=== PATIENT | male | born 1955 | race Caucasian/White ===

== ENCOUNTER 2016-08-28 09:08 | Outpatient (CLI) | payer MEDICARE ==
--- NOTE | 2016-08-28 11:11 | RAD ---
FINGERS RIGHT HAND: Technique: Third finger is evaluated with two views. History: Pain to the third digit. FINDINGS: There are mild degenerative changes at the PIP and DIP joints of the third finger with minimal spurr ing at these joints. No fracture or dislocation. No acute osseous abnormality. There is a rounded metallic foreign body seen in the soft tissues of the thenar eminence which measu res approximately 1.0 cm. IMPRESSION: 1. Degenerative changes at the PIP and DIP joints as described but no acute osseous abnormality. 2. A rounded metallic soft tissue foreign body is noted as described. POS: [facility]
== END 2016-08-28 09:09 | disposition home or self-care (01) ==
LOC: MADRAD 09:08
PROVIDERS: ATTEND Family Medicine
DX: M65.331 Trigger finger, right middle finger (principal); M79.5 Residual foreign body in soft tissue

== ENCOUNTER 2016-10-15 14:23 | Outpatient (CLI) | payer MEDICARE ==
--- NOTE | 2016-10-15 14:50 | RAD ---
LEFT HIP TWO VIEWS: History: Hip pain. FINDINGS: Mild degenerative change noted. There is perhaps minimal spurring from the femoral head. There is no fracture. No other osseous lesion. IMPRESSION: No acute finding. Evidence of very mild degenerative change at the left hip. POS: [facility]
--- NOTE | 2016-10-15 17:49 | RAD ---
FIVE VIEWS LUMBAR SPINE 10/15/16 HISTORY: Low back pain one week ago. No history of trauma. FINDINGS: There are five nonribbearing lumbar type vertebral bodies. There is left convex scoliosis of the lum bar spine centered at the level of the L3 vertebral body. There is narrowing of the L3-L4 and L5-S1 intervertebral disc spaces. Posterior osteophyte formation is seen in the lower lumbar spine. There are vascular calcifications in the abdominal aorta and iliac arteries. IMPRESSION: 1. Degenerative changes in the lower lumbar spine with left convex scoliosis of the lumbar spin e. 2. No fracture or subluxation is appreciated. POS: [facility]
== END 2016-10-15 14:24 | disposition home or self-care (01) ==
LOC: MADRAD 14:23
PROVIDERS: ATTEND Family Medicine
DX: M25.552 Pain in left hip (principal); M54.17 Radiculopathy, lumbosacral region; M47.816 Spondylosis without myelopathy or radiculopathy, lumbar region
CPT/HCPCS: 72110

== ENCOUNTER 2016-12-24 09:57 | Outpatient (CLI) | payer MEDICARE ==
[2016-12-24 10:31] LABS: #Basophils 0.1 thou/uL (0.0-0.2); #Eosinphils 0.2 thou/uL (0.0-0.7); #Lymphocytes 1.9 thou/uL (1.20-3.40); #Monocytes 0.6 thou/uL (0.11-0.59); #Neutrophils 3.2 thou/uL (1.40-6.50); %Basophils 1.4 % (0.0-1.0); %Eosinophils 2.6 % (0.0-10.0); %Lymphocytes 32.9 % (21.0-51.0); %Monocytes 9.6 % (0.0-10.0); %Neutrophils 53.6 % (42.0-75.0); Hemoglobin 15.3 g/dL (14.0-18.0); Mean Corpuscular HGB CONC 33.3 g/dL (32.0-36.0); Mean Corpuscular Hemoglobin 32.4 pg (27.0-31.0); Mean Corpuscular Volume 97.3 fl (80.0-94.0); Platelet Count 273 thou/uL (130-400); RBC Distribution Width 12.6 % (11.5-14.5); Red Blood Cell (RBC) Count 4.71 mill/uL (4.70-6.10); White Blood Cell (WBC) Count 5.9 thou/uL (4.8-10.8)
[2016-12-24 11:01] LABS: ALT (SGPT) 27 U/L (8-55); AST (SGOT) 17 U/L (5-34); Albumin 4.1 g/dL (3.5-5.0); Alkaline Phosphatase 89 U/L (40-150); Anion Gap 13 mmol/L (10-20); BUN (Urea Nitrogen) 10 mg/dL (8.4-25.7); Bilirubin, Total 0.4 mg/dL (0.2-1.2); Calc. Creatinine Clearance 0 mL/min (70-130); Calcium 8.7 mg/dL (7.8-10.44); Carbon Dioxide 25 mmol/L (22-29); Cardiac Risk 3.8 (Less than 4.5); Chloride 104 mmol/L (98-107); Cholesterol 217 mg/dl (< 200 Desired); Estimated GFR-MDRD 75; Globulin 3.2 g/dL (2.4-3.5); Glucose 91 mg/dL (70-105); HDL Cholesterol 57 mg/dL (>60 Neg Risk); LDL Cholesterol, Calculated 142 mg/dL; Potassium 4.4 mmol/L (3.5-5.1); Protein, Total 7.3 g/dL (6.0-8.3); Sodium 138 mmol/L (136-145); Triglycerides 91 mg/dL (Less than 150)
[2016-12-24 11:09] LABS: Hemoglobin A1c 5.2 % (4.0-6.0)
[2016-12-24 11:16] LABS: Free T4 (Free Thyroxine) 1.03 ng/dL (0.70-1.48); PSA-Asymptomatic (SCREENING) 0.85 ng/mL (0-4.0); Thyroid Stimulating Hormone 1.6049 uIU/mL (0.35-4.94)
[2016-12-24 13:23] LABS: Vitamin D, 25 Hydroxy 19.8 ng/mL (> 30.0)
== END 2016-12-24 09:58 | disposition home or self-care (01) ==
LOC: MADLABBHPM 09:57
PROVIDERS: ATTEND Family Medicine
DX: Z00.00 Encounter for general adult medical examination without abnormal findings (principal)
CPT/HCPCS: 36415; 80053; 80061; 82306; 83036; 84439; 84443; 85025; G0103

== ENCOUNTER 2016-12-26 15:40 | Outpatient (CLI) | payer MEDICARE ==
--- NOTE | 2016-12-26 17:55 | RAD ---
LEFT SHOULDER 3 VIEWS: Date: 12/26/16 HISTORY: Left anterior shoulder pain. COMPARISON: None. FINDINGS: No acute fracture or mild alignment. Mild degenerative disease at the acromioclavicular joint. Evidence of old healed fracture of the distal clavicle. Visualized ribs are unremarkable. IMPRESSION: No acute fracture or malalignment. POS: [facility]
== END 2016-12-26 15:41 | disposition home or self-care (01) ==
LOC: MADRAD 15:40
PROVIDERS: ATTEND Family Medicine
DX: M25.512 Pain in left shoulder (principal)

== ENCOUNTER 2018-11-25 09:31 | Outpatient (CLI) | payer MEDICARE ==
--- NOTE | 2018-11-25 09:51 | RAD ---
EXAM: Chest 2 views: HISTORY: Right rib pain and shortness of breath COMPARISON: None. FINDINGS: There is a normal-sized cardiomediastinal silhouette. Scarring is seen in the right apex. There is no evidence of consolidation, mass, or pleural effusion. Postsurgical changes are seen in the cervical spine. IMPRESSION: No evidence of acute cardiopulmonary disease
--- NOTE | 2018-11-25 10:01 | RAD ---
EXAM: Right Rib series HISTORY: Rib pain COMPARISON: None FINDINGS: Multiple views of the right ribs shows no evidence of displaced rib fracture. No underlying pleural t hickening or pneumothorax are seen. IMPRESSION: 1. No evidence of displaced rib fracture.
== END 2018-11-25 09:32 | disposition home or self-care (01) ==
LOC: MADRAD 09:31
PROVIDERS: ATTEND Family Medicine
DX: R07.81 Pleurodynia (principal); R06.02 Shortness of breath
CPT/HCPCS: 71046

== ENCOUNTER 2021-04-09 10:24 | Outpatient (CLI) | payer MEDICARE | END 2021-04-09 10:25 | disposition home or self-care (01) | LOC: MADRAD 10:24 | PROVIDERS: ATTEND Surgery | DX: J93.9 Pneumothorax, unspecified (principal) | CPT/HCPCS: 71046 ==